=== PATIENT | female | born 1990 | race Caucasian/White ===

== ENCOUNTER 2017-11-26 17:20 | Inpatient (IN) ==
[2017-11-26] MEDS ORDERED: Clindamycin 600 mg/NS Premix 600 MG/50 ML PIGGYBACK IV.SIG ONE (19:39)
[2017-11-26] MEDS ORDERED: Sod Chloride 0.9% Inj 1,000 ML IV.SIG ONE (19:39)
[2017-11-26] MEDS ORDERED: Acetaminophen 325 MG Tablet PO ONE (19:39)
[2017-11-26] MEDS ORDERED: Vancomycin Inj 1 GM/200 ML PIGGYBACK IV.SIG ONE (19:39)
[2017-11-26] MEDS ORDERED: Ketorolac Inj 30 MG/ML (IVP) Vial IV.PUSH ONE (19:39)
--- NOTE | 2017-11-26 19:44 | ED ---
HPI General Chief complaint: Skin/Abscess/Foreign Body Stated complaint: Skin Time Seen by Provider: 11/26/17 19:26 Source: patient Mode of arrival: ambulatory Limitations: no limitations History of Present Illness HPI narrative: The patient is a 27-year-old female who presents to the emergency department for an infected wound to the right hand. The patient has a history of IV drug abuse, last use IV drugs yesterday. The patient was using mildly 2 days ago, via the right hand, which she developed swelling and pain. She now notes fever that is subjective, chills, and increasing right hand pain and swelling. 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 The patient denies any chest pain, shortness breath, nausea, vomiting, or abdominal pain. The patient does not have a local primary physician. Symptoms are moderate. Related Data Home Medications Medication Instructions Recorded Confirmed No Known Home Medications 11/26/17 11/26/17 Allergies Allergy/AdvReac Type Severity Reaction Status Date / Time No Known Allergies Allergy Unverified 11/26/17 19:39 Review of Systems Except as stated in HPI: all other systems reviewed are negative [facility] Medical History Medical History Abscess of leg (Acute) Surgical History Surgical History Previous section (Acute) Social History Social History Substance History: Active Abuse Second Hand Smoke Exposure: No Smoking Status: Current every day smoker Tobacco Type: Cigarettes How Often Do You Have a Drink Containing Alcohol: Never Recent Travel in [facility] within the Last 8 Weeks: No Recent Out of Country Travel within the Last 8 Weeks: No Exam Narrative Exam Narrative: GENERAL: Awake, alert, 27-year-old female who appears her stated age and is in no acute respiratory distress. SKIN: Focused skin assessment warm/dry. Impetigo type lesions, circular, crusted, on the upper extremities and lower extremities bilaterally. HEAD: Atraumatic. Normocephalic. EYES: Pupils equal and round. No scleral icterus. No injection or drainage. ENT: No nasal bleeding or discharge. Mucous membranes pink and moist. NECK: Trachea midline. No JVD. CARDIOVASCULAR: Regular, tachycardic with a heart rate 110. RESPIRATORY: No accessory muscle use. Clear to auscultation. Breath sounds equal bilaterally. GASTROINTESTINAL: Abdomen soft, non-tender, nondistended. Hepatic and splenic margins not palpable. MUSCULOSKELETAL: The right hand is erythematous, edematous, warm to touch. Positive right radial pulse. Multiple lesions noted on the upper and lower extremities from IV drug use. NEUROLOGICAL: Awake and alert. No obvious cranial nerve deficits. Motor grossly within normal limits. Normal speech. PSYCHIATRIC: Appropriate mood and affect; insight and judgment normal. Procedures Ultrasound POC Ultrasound Procedure: An ultrasound-guided IV was placed in the left upper extremity. Nursing staff was unable to obtain IV access, patient does have a history of IV drug abuse. I placed a 20-gauge ultrasound-guided IV, 1.88 inches , and the left upper extremity. There is good blood return. The IV fluid easily. There is no complications. The patient tolerated the procedure without difficulty. Course Consultations Consultation #1: The on-call medical service was paged for admission at 9:38 PM. I discussed the patient with the residents who agree with admission to Dr. Smith. Time: 21:38 Initial Documented Vital Signs Temperature 99.9 F H 11/26/17 17:25 Pulse Rate 113 H 11/26/17 17:25 Respiratory Rate 18 11/26/17 17:25 Blood Pressure 132/63 11/26/17 17:25 Pulse Oximetry 99 11/26/17 17:25 Last Documented Vital Signs Temperature 99.9 F H 11/26/17 21:00 Pulse Rate 99 H 11/26/17 21:00 Respiratory Rate 14 11/26/17 21:00 Blood Pressure 143/77 H 11/26/17 21:00 Pulse Oximetry 98 11/26/17 21:00 Medical Decision Making MDM Narrative Medical decision making narrative: IV was established, labs are drawn and sent, and the patient was placed on cardiac telemetry monitoring and continuous pulse oximetry monitoring. EKG was ordered and interpreted. Blood cultures and lactic acid were sent to lab. The patient was administered Tylenol, Toradol, IV fluids, vancomycin, and clindamycin. The patient's white count is unremarkable. Lactic acid is normal. Potassium is low at 3.1, this will be replaced orally. Chest x-ray is negative. X-ray of the right hand reveal soft tissue swelling but no visible foreign body. Patient is IV drug abuse with apparent bacteremia/septicemia with tachycardia and temperature 99.9. The patient may benefit from IV antibiotics until blood cultures are obtained. Therefore, the on-call medical service was paged for admission. Differential Diagnosis Differential Diagnosis: Differential diagnosis includes sepsis, bacteremia, septicemia, IV drug abuse, abscess, cellulitis, infected wound. Lab Data Lab results reviewed: Yes I reviewed the patient's lab results. Result diagrams: 11/26/17 20:10 11/26/17 20:30 Lab Results 11/26/17 11/26/17 11/26/17 Range/Units 20:10 20:30 20:30 WBC 9.2 (4.0-11.0) th/mm3 RBC 4.79 (4.00-5.30) mil/mm3 Hgb 13.7 (11.6-15.3) gm/dL Hct 43.3 (35.0-46.0) % MCV 90.5 (80.0-100.0) fL MCH 28.6 (27.0-34.0) pg MCHC 31.6 L (32.0-36.0) % RDW 17.8 H (11.6-17.2) % Plt Count 318 (150-450) th/mm3 MPV 7.2 (7.0-11.0) fL Neut % (Auto) 76.8 H (16.0-70.0) % Lymph % (Auto) 15.3 (9.0-44.0) % Tompkins % (Auto) 7.1 (0.0-8.0) % Eos % (Auto) 0.4 (0.0-4.0) % Baso % (Auto) 0.4 (0.0-2.0) % Neut # (Auto) 7.1 (1.8-7.7) th/mm3 Lymph # (Auto) 1.4 (1.0-4.8) th/mm3 Tompkins # (Auto) 0.7 (0.0-0.9) th/mm3 Eos # (Auto) 0.0 (0.0-0.4) th/mm3 Baso # (Auto) 0.0 (0.0-0.2) th/mm3 WBC Differential . Differential Comment Auto diff final Sodium 140 (136-145) meq/L Potassium 3.1 L (3.5-5.1) meq/L Chloride 103 (98-107) meq/L Carbon Dioxide 29.0 (21.0-32.0) meq/L Anion Gap 8 (5-15) meq/L BUN 5 L (7-18) mg/dL Creatinine 0.67 (0.50-1.00) mg/dL Estimated GFR Greater than 89 (>89) mL/min Random Glucose 63 L (74-106) mg/dL Lactic Acid 1.1 (0.4-2.0) mmol/L Calcium 8.0 L (8.5-10.1) mg/dL Total Bilirubin 0.2 (0.2-1.0) mg/dL AST 7 L (15-37) U/L ALT 10 (10-53) U/L Alkaline Phosphatase 55 (45-117) U/L Total Protein 7.3 (6.4-8.2) g/dL Albumin 2.7 L (3.4-5.0) g/dL Imaging Data Radiologist's impression: Chest X-Ray 11/26/17 19:39 CONCLUSION: Hand X-Ray 11/26/17 19:44 CONCLUSION: Chest x-ray reveals no acute cardiopulmonary disease. Hand x-ray reveals soft tissue swelling. ECG Data EKG Prior to Arrival: No Attestation: I personally reviewed and interpreted this ECG as follows: Interpretation: EKG reveals normal sinus rhythm with a rate in the 9 or ectopy noted. Discharge Plan Discharge Disposition Patient Disposition: 30 Still Patient Discharge Condition Condition: Stable Discharge Details Diagnosis: Cellulitis, Infected wound, Intravenous drug abuse Physicians Team ED Provider: Sushil Zavaleta Primary Care Provider: Primary Care Maty Bo Rxs /Orders / Referrals /Forms Prescriptions: No Action No Known Home Medications RF: 0 Status ED Status: Pending Admission
[2017-11-26] MEDS ORDERED: Vancomycin Inj 1,000 MG in Sodium Chlor 0.9% Inj 250 ML IV.SIG ONE (20:30)
--- NOTE | 2017-11-26 20:38 | XR ---
EXAM DATE: 11/26/2017 8:06 PM EDT AGE/SEX: 27 years / Female INDICATIONS: Fever, cough, congestion. CLINICAL DATA: This is the patient's initial encounter. Patient reports that signs and symptoms have been present for 2 days and indicates a pain score of 0/10. MEDICAL/SURGICAL HISTORY: . Smoker. None. COMPARISON: No prior exams available for comparison. FINDINGS: A single AP view of the chest demonstrates the lungs to be symmetrically aerated without evidence of mass, infiltrate or effusion. The cardiomediastinal contours are unremarkable. Osseous structures a re intact. CONCLUSION: No acute cardiopulmonary process. Electronically signed by: Arun Spicer MD 11/26/2017 8:37 PM EDT
[2017-11-26 20:45] LABS: Baso % (Auto) 0.4 % (0.0-2.0); Eos % (Auto) 0.4 % (0.0-4.0); Hematocrit 43.3 % (35.0-46.0); Hemoglobin 13.7 gm/dL (11.6-15.3); Lymph # (Auto) 1.4 th/mm3 (1.0-4.8); Lymph % (Auto) 15.3 % (9.0-44.0); Mean Corpuscular HGB Conc 31.6 % (32.0-36.0); Mean Corpuscular Hemoglobin 28.6 pg (27.0-34.0); Mean Corpuscular Volume 90.5 fL (80.0-100.0); Mean Platelet Volume 7.2 fL (7.0-11.0); Mono # (Auto) 0.7 th/mm3 (0.0-0.9); Mono % (Auto) 7.1 % (0.0-8.0); Neut # (Auto) 7.1 th/mm3 (1.8-7.7); Neut % (Auto) 76.8 % (16.0-70.0); Platelet Count 318 th/mm3 (150-450); Red Blood Count 4.79 mil/mm3 (4.00-5.30); Red Cell Distribution Width 17.8 % (11.6-17.2); White Blood Count 9.2 th/mm3 (4.0-11.0)
--- NOTE | 2017-11-26 21:11 | XR ---
EXAM DATE: 11/26/2017 8:08 PM EDT AGE/SEX: 27 years / Female INDICATIONS: Right hand pain and swelling after injecting Amy into hand two days ago. Evaluate for foreign body. CLINICAL DATA: This is the patient's initial encounter. Patient reports that signs and symptoms have been present for 2 days and indicates a pain score of 10/10. MEDICAL/SURGICAL HISTORY: . Smoker. None. COMPARISON: No prior exams available for comparison. FINDINGS: No fracture is seen. No areas of bony destruction are seen. The bones and joints are normally aligned . There is soft tissue swelling at the dorsal aspect of the hand over the metacarpals. No foreign bod y is seen. CONCLUSION: Soft tissue swelling. Electronically signed by: Arun Spicer MD 11/26/2017 9:10 PM EDT
[2017-11-26 21:33] LABS: Albumin 2.7 g/dL (3.4-5.0); Anion Gap 8 meq/L (5-15); Aspartate Aminotransferase 7 U/L (15-37); Blood Urea Nitrogen 5 mg/dL (7-18); Chloride 103 meq/L (98-107); Glomerular Filtration Rate Greater Than 89 mL/min (>89); Glucose,Random 63 mg/dL (74-106); Potassium 3.1 meq/L (3.5-5.1); Sodium 140 meq/L (136-145)
[2017-11-26 21:37] LABS: Alanine Aminotransferase 10 U/L (10-53); Alkaline Phosphatase 55 U/L (45-117); Total Protein 7.3 g/dL (6.4-8.2)
--- NOTE | 2017-11-26 22:14 | P.HPFP ---
History of Present Illness Primary Care Physician: No Primary Care Physician History of Present Illness: 27 year old female with history of IVDU presents with R hand swelling and pain shooting up her arm. The pain started 2 days ago and it was located on her right hand anteriorly. She describes the pain as a sharp pain. Holding her hand up in the air makes it feel better and the pain is worse when she tries to lay it down. The swelling seems to have increased up her arm in the past few days. She stated she was trying to shoot ji and cocaine up two days ago and she missed the vein so she believes she injected her skin and that's why it is infected. She has not taken any medication for the pain. She has also had associated fever, chills, nausea and vomiting over the past two days. This has never happened to her in the past PMH: Denies A: NKDA Meds: See Med Red FH: Denies SH: Currently homeless. Smokes cigarettes 1 ppd for 9 years. Denies any alcohol use. Does Heroin, Cocaine, and Ji (does not share needles, gets them from [facility]). Sexually active with male. Uses protection (condom) with every encounter. - Diagnosis (1) Cellulitis (2) Withdrawal from opioids (3) Intravenous drug abuse (4) Murmur, cardiac (5) Nutrition, metabolism, and development symptoms Inpatient Certification: I certify that the inpatient services were ordered in accordance with Medicare regulations governing the order. This includes certification that hospital inpatient services are reasonable and necessary and in the case of services not specified as inpatient-only under 42 CFR 419.22(n), that they are appropriately provided as inpatient services in accordance to with the 2-midnight benchmark under 43 CFR 412.3(e) Review of Systems Constitutional: Reports chills, Reports fever(s) Comments: started yesterday Cardiovascular: Denies chest pain Respiratory: Denies shortness of breath Gastrointestinal: Reports nausea, Reports vomiting, Denies abdominal pain Comments: started two days ago Skin/Breast: Denies rash, Denies skin ulcer, Denies sores, Denies wounds PMFSH - History History Provided By: Patient - Medical History Medical History: Medical History (Last Updated 11/26/17 @ 19:44 by Juanito Walker) Abscess of leg - Surgical History Surgical History: Surgical History (Last Updated 11/26/17 @ 19:44 by Juanito Walker) Previous section - Tobacco History Second Hand Smoke Exposure: No Tobacco Use In Past 30 Days: Yes (1/2PPD) Smoking Status: Current every day smoker Tobacco Type: Cigarettes - Alcohol History How Often Do You Have a Drink Containing Alcohol: Never - Substance Use History Substance History: Active Abuse - Substance Use Type Heroin Type: JI Status: Active Route Used: By Mouth, Intravenously Reason for Use: Feels Good - Travel History Recent Travel in the [place] Within the Last 8 Weeks: No Recent Travel Out of the Country Within the Last 8 Weeks: No - Immunization History Tetanus Immunization: Unsure Hx Influenza Vaccine This Season: No Medications and Allergies Allergies Allergy/AdvReac Type Severity Reaction Status Date / Time No Known Allergies Allergy Unverified 11/26/17 19:39 Home Medications Medication Instructions Recorded Confirmed Type No Known Home Medications 11/26/17 11/26/17 History Exam Vital signs: Vital Signs 11/26/17 17:25 11/26/17 19:43 11/26/17 21:00 Temperature 99.9 F H 99.9 F H Pulse Rate 113 H 99 H Respiratory Rate 18 14 Blood Pressure 132/63 143/77 H Pulse Oximetry 99 99 98 Intake & Output 11/26/17 11/26/17 11/27/17 06:59 18:59 06:59 Weight 63.503 kg - Routine HEENT Exam Head: Present: normocephalic, atraumatic - Routine Respiratory Exam Present: CTA bilaterally - Routine Cardiovascular Exam Present: RRR, murmur Comments: grade 3 systolic murmur located over the L sternal border - Routine Abdominal Exam Present: soft, normoactive bowel sounds - Routine Extremities Exam Comments: Multiple skin abrasions seen on forearms and feet bilaterally. 4x6cm area of erythematous swelling on the right hand. It is warm to the touch and tender to palpation. Limited blue leather setter strength and movement of the right fingers. 2+ Radial pulses are present bilaterally. Sensation to light touch is intact in the hands bilaterally. Results - Labs Result diagrams: 11/26/17 20:10 11/26/17 20:30 Abnormal lab results 11/26/17 11/26/17 Range/Units 20:10 20:30 MCHC 31.6 L (32.0-36.0) % RDW 17.8 H (11.6-17.2) % Neut % (Auto) 76.8 H (16.0-70.0) % Potassium 3.1 L (3.5-5.1) meq/L BUN 5 L (7-18) mg/dL Random Glucose 63 L (74-106) mg/dL Calcium 8.0 L (8.5-10.1) mg/dL AST 7 L (15-37) U/L Albumin 2.7 L (3.4-5.0) g/dL Short CBC 11/26/17 Range/Units 20:10 WBC 9.2 (4.0-11.0) th/mm3 Hgb 13.7 (11.6-15.3) gm/dL Hct 43.3 (35.0-46.0) % Plt Count 318 (150-450) th/mm3 BMP 11/26/17 20:30 Sodium 140 Potassium 3.1 L Chloride 103 Carbon Dioxide 29.0 BUN 5 L Creatinine 0.67 Calcium 8.0 L Liver Function 11/26/17 Range/Units 20:30 Total Bilirubin 0.2 (0.2-1.0) mg/dL AST 7 L (15-37) U/L ALT 10 (10-53) U/L Alkaline Phosphatase 55 (45-117) U/L Albumin 2.7 L (3.4-5.0) g/dL - Imaging Impressions Chest X-Ray 11/26/17 19:39 CONCLUSION: Hand X-Ray 11/26/17 19:44 CONCLUSION: Caprini VTE Risk Assessment Caprini VTE Risk Assessment: No/Low Risk (score <= 1) Caprini Risk Assessment Model: Point Value = 1 Point Value = 2 Point Value = 3 Point Value = 5 Age 41-60 Minor surgery BMI > 25 kg/m2 Swollen legs Varicose veins or History of unexplained or recurrent spontaneous Oral contraceptives or hormone replacement Sepsis (< 1 month) Serious lung disease, including pneumonia (< 1 month) Abnormal pulmonary function Acute myocardial infarction Congestive heart failure (< 1 month) History of inflammatory bowel disease Medical patient at bed rest Age 61-74 Arthroscopic surgery Major open surgery (> 45 min) Laparoscopic surgery (> 45 min) Malignancy Confined to bed (> 72 hours) Immobilizing plaster cast Central venous access Age >= 75 History of VTE Family history of VTE Factor V Leiden Prothrombin 44530A Lupus anticoagulant Anticardiolipin antibodies Elevated serum homocysteine Heparin-induced thrombocytopenia Other congenital or acquired thrombophilia Stroke (< 1 month) Elective arthroplasty Hip, pelvis, or leg fracture Acute spinal cord injury (< 1 month) Prophylaxis Regimen: Total Risk Factor Score Risk Level Prophylaxis Regimen 0-1 Low Early ambulation 2 Moderate Order ONE of the following: *Sequential Compression Device (SCD) *Heparin 5000 units SQ BID 3-4 Higher Order ONE of the following medications: *Heparin 5000 units SQ TID *Enoxaparin/Lovenox 40 mg SQ daily (WT < 150 kg, CrCl > 30 mL/min) *Enoxaparin/Lovenox 30 mg SQ daily (WT < 150 kg, CrCl > 10-29 mL/min) *Enoxaparin/Lovenox 30 mg SQ BID (WT < 150 kg, CrCl > 30 mL/min) AND/OR *Sequential Compression Device (SCD) 5 or more Highest Order ONE of the following medications: *Heparin 5000 units SQ TID (Preferred with Epidurals) *Enoxaparin/Lovenox 40 mg SQ daily (WT < 150 kg, CrCl > 30 mL/min) *Enoxaparin/Lovenox 30 mg SQ daily (WT < 150 kg, CrCl > 10-29 mL/min) *Enoxaparin/Lovenox 30 mg SQ BID (WT < 150 kg, CrCl > 30 mL/min) AND *Sequential Compression Device (SCD) Assessment and Plan - Assessment (1) Cellulitis Code(s): L03.90 - Cellulitis, unspecified Status: Acute Plan: 4x6 cm area of erythematous swelling of the R hand. Warm to the touch and tender to palpation. WC: 9.2 with neutrophil predominant 76.8 IV Vancomycin ordered. Blood Cultures sent. Tylenol for fevers PRN Ketorolac 30 mg IV q6 for pain. Monitor Vitals q4 (2) Withdrawal from opioids Code(s): F11.23 - Opioid dependence with withdrawal Status: Acute Plan: Patient admits to using herion, cocaine and ji. Currently withdrawing. Urine Drug Screen Ordered Benadryl PRN for withdrawal symptoms (3) Intravenous drug abuse Code(s): F19.10 - Other psychoactive substance abuse, uncomplicated Status: Acute Plan: Patient admits to using heroin, ji and cocaine. States that she is currently withdrawing. Psych Drug Screen Ordered (4) Murmur, cardiac Code(s): R01.1 - Cardiac murmur, unspecified Status: Acute Plan: Systolic murmur appreciated over the L sternal border. Concerns for endocarditis considering IV drug use Echo ordered. (5) Nutrition, metabolism, and development symptoms Code(s): R63.8 - Other symptoms and signs concerning food and fluid intake Status: Acute Plan: Fluids: NS maintenance @ 100 mls/hr Electrolyes: Monitor and Replete as needed Nutrition: Normal Diet (1) Cellulitis Qualifiers: Site of cellulitis: extremity Site of cellulitis of extremity: upper extremity Laterality: right Qualified Code(s): L03.113 - Cellulitis of right upper limb
[2017-11-26] MEDS ORDERED: Acetaminophen 325 MG Tablet PO PRN (22:33)
[2017-11-26] MEDS ORDERED: Vancomycin Consult Pharmacy 1 EACH OTHER SCH (23:00)
[2017-11-26 23:41] LABS: Amphetamine Urine With Conf Neg (Neg); Benzodiazepine Urine With Conf Neg (Neg)
[2017-11-27] MEDS: Sod Chloride 0.9% Inj 1,000 ML IV.CONT SCH ×4 (03:06→23:12)
[2017-11-27] MEDS: Ketorolac Inj 30 MG/ML (IVP) Vial IV.PUSH SCH ×5 (03:06→23:12)
[2017-11-27] MEDS ORDERED: Vancomycin Inj 1,000 MG in Sodium Chlor 0.9% Inj 250 ML IV.SIG ONE (05:00)
[2017-11-27 06:16] LABS: Bacteria,Urine Occasional /hpf; Bilirubin,Urine Negative (Negative); Clarity,Urine Cloudy (Clear); Color,Urine Yellow (Yellw/Straw); Glucose,Urine (UA) Negative (Negative); Leukocyte Esterase,Urine Large (Negative); Mucus,Urine Few /lpf (Occasional); Nitrite,Urine Negative (Negative); Specific Gravity,Urine 1.014 (1.002-1.035); Squamous Epithelial Cell,Urine 3 /hpf (0-5)
[2017-11-27 08:51] LABS: Baso % (Auto) 0.2 % (0.0-2.0); Eos # (Auto) 0.1 th/mm3 (0.0-0.4); Eos % (Auto) 1.1 % (0.0-4.0); Hematocrit 30.9 % (35.0-46.0); Hemoglobin 10.1 gm/dL (11.6-15.3); Lymph # (Auto) 1.1 th/mm3 (1.0-4.8); Lymph % (Auto) 19.1 % (9.0-44.0); Mean Corpuscular HGB Conc 32.5 % (32.0-36.0); Mean Corpuscular Volume 89.2 fL (80.0-100.0); Mean Platelet Volume 7.4 fL (7.0-11.0); Mono # (Auto) 0.5 th/mm3 (0.0-0.9); Mono % (Auto) 9.5 % (0.0-8.0); Neut % (Auto) 70.1 % (16.0-70.0); Platelet Count 274 th/mm3 (150-450); Red Blood Count 3.47 mil/mm3 (4.00-5.30); Red Cell Distribution Width 17.5 % (11.6-17.2); White Blood Count 5.7 th/mm3 (4.0-11.0)
[2017-11-27] MEDS ORDERED: Piperacil/Tazo 3.375 GM Premix 50 ML IV.SIG SCH (09:00)
[2017-11-27 09:02] LABS: Alanine Aminotransferase 9 U/L (10-53); Albumin 2.4 g/dL (3.4-5.0); Anion Gap 7 meq/L (5-15); Aspartate Aminotransferase 6 U/L (15-37); Blood Urea Nitrogen 8 mg/dL (7-18); Calcium 7.6 mg/dL (8.5-10.1); Carbon Dioxide 26.3 meq/L (21.0-32.0); Chloride 110 meq/L (98-107); Glomerular Filtration Rate Greater Than 89 mL/min (>89); Glucose,Random 70 mg/dL (74-106); Potassium 3.3 meq/L (3.5-5.1)
[2017-11-27 09:03] LABS: Sodium 143 meq/L (136-145)
[2017-11-27 09:04] LABS: Alkaline Phosphatase 44 U/L (45-117); Total Protein 6.3 g/dL (6.4-8.2)
[2017-11-27] MEDS ORDERED: Haloperidol Inj 5 MG/ML Ampul IV.PUSH PRN (11:22)
--- NOTE | 2017-11-27 11:34 | P.PNFP ---
Subjective Interval history: Patient seen and examined bedside this morning. She states her redness and swelling of her right hand has improved overnight. She is now able to move her fingers and she was not able to move her fingers before. She does not feel like the redness is extending. She feels the pain from her fingers to her bicep. She denies any nausea/vomiting. She does have a good appetite. Denies any chest pain/shortness of breath/dizziness. <Digna Solorzano - 11/27/17 11:33> Results - Labs Result diagrams: 11/27/17 12:20 11/27/17 08:00 <Seth Smith - 11/27/17 16:30> Abnormal lab results 11/26/17 11/26/17 11/27/17 Range/Units 20:10 20:30 05:30 RBC (4.00-5.30) mil/mm3 Hgb (11.6-15.3) gm/dL Hct (35.0-46.0) % MCHC 31.6 L (32.0-36.0) % RDW 17.8 H (11.6-17.2) % Neut % (Auto) 76.8 H (16.0-70.0) % [place] % (Auto) (0.0-8.0) % Potassium 3.1 L (3.5-5.1) meq/L Chloride (98-107) meq/L BUN 5 L (7-18) mg/dL Random Glucose 63 L (74-106) mg/dL Calcium 8.0 L (8.5-10.1) mg/dL AST 7 L (15-37) U/L ALT (10-53) U/L Alkaline Phosphatase (45-117) U/L Total Protein (6.4-8.2) g/dL Albumin 2.7 L (3.4-5.0) g/dL Urine Clarity Cloudy H (Clear) Urine Protein 30 H (Neg-Trace) mg/dL Urine Urobilinogen 2.0 H (Less than 2) mg/dL Ur Leukocyte Esterase Large H (Negative) Urine RBC 4 H (0-3) /hpf Urine WBC Clumps Few H (None) Urine Bacteria Occasional H (None) /hpf Urine Mucus Few H (Occasional) /lpf 11/27/17 11/27/1711/27/18 Range/Units 08:00 08:05 12:20 RBC 3.47 L 3.60 L (4.00-5.30) mil/mm3 Hgb 10.1 L D 10.3 L (11.6-15.3) gm/dL Hct 30.9 L 31.6 L (35.0-46.0) % MCHC (32.0-36.0) % RDW 17.5 H 17.5 H (11.6-17.2) % Neut % (Auto) 70.1 H (16.0-70.0) % [place] % (Auto) 9.5 H (0.0-8.0) % Potassium 3.3 L (3.5-5.1) meq/L Chloride 110 H (98-107) meq/L BUN (7-18) mg/dL Random Glucose 70 L (74-106) mg/dL Calcium 7.6 L (8.5-10.1) mg/dL AST 6 L (15-37) U/L ALT 9 L (10-53) U/L Alkaline Phosphatase 44 L (45-117) U/L Total Protein 6.3 L D (6.4-8.2) g/dL Albumin 2.4 L (3.4-5.0) g/dL Urine Clarity (Clear) Urine Protein (Neg-Trace) mg/dL Urine Urobilinogen (Less than 2) mg/dL Ur Leukocyte Esterase (Negative) Urine RBC (0-3) /hpf Urine WBC Clumps (None) Urine Bacteria (None) /hpf Urine Mucus (Occasional) /lpf Short CBC 11/26/17 11/27/17 11/27/17 Range/Units 20:10 08:05 12:20 WBC 9.2 5.7 5.9 (4.0-11.0) th/mm3 Hgb 13.7 10.1 L D 10.3 L (11.6-15.3) gm/dL Hct 43.3 30.9 L 31.6 L (35.0-46.0) % Plt Count 318 274 326 (150-450) th/mm3 BMP 11/26/17 11/27/17 20:30 08:00 Sodium 140 143 Potassium 3.1 L 3.3 L Chloride 103 110 H Carbon Dioxide 29.0 26.3 BUN 5 L 8 Creatinine 0.67 0.57 Calcium 8.0 L 7.6 L Liver Function 11/26/17 11/27/17 Range/Units 20:30 08:00 Total Bilirubin 0.2 0.2 (0.2-1.0) mg/dL AST 7 L 6 L (15-37) U/L ALT 10 9 L (10-53) U/L Alkaline Phosphatase 55 44 L (45-117) U/L Albumin 2.7 L 2.4 L (3.4-5.0) g/dL Urine 11/27/17 Range/Units 05:30 Urine Color Yellow (Yellw/Straw) Urine Clarity Cloudy H (Clear) Urine pH 6.0 (5.0-8.5) Ur Specific [place] 1.014 (1.002-1.035) Urine Protein 30 H (Neg-Trace) mg/dL Urine Glucose (UA) Negative (Negative) mg/dL <Seth Smith - 11/27/17 16:30> Abnormal lab results 11/26/17 11/26/17 11/27/17 Range/Units 20:10 20:30 05:30 RBC (4.00-5.30) mil/mm3 Hgb (11.6-15.3) gm/dL Hct (35.0-46.0) % MCHC 31.6 L (32.0-36.0) % RDW 17.8 H (11.6-17.2) % Neut % (Auto) 76.8 H (16.0-70.0) % [place] % (Auto) (0.0-8.0) % Potassium 3.1 L (3.5-5.1) meq/L Chloride (98-107) meq/L BUN 5 L (7-18) mg/dL Random Glucose 63 L (74-106) mg/dL Calcium 8.0 L (8.5-10.1) mg/dL AST 7 L (15-37) U/L ALT (10-53) U/L Alkaline Phosphatase (45-117) U/L Total Protein (6.4-8.2) g/dL Albumin 2.7 L (3.4-5.0) g/dL Urine Clarity Cloudy H (Clear) Urine Protein 30 H (Neg-Trace) mg/dL Urine Urobilinogen 2.0 H (Less than 2) mg/dL Ur Leukocyte Esterase Large H (Negative) Urine RBC 4 H (0-3) /hpf Urine WBC Clumps Few H (None) Urine Bacteria Occasional H (None) /hpf Urine Mucus Few H (Occasional) /lpf 11/27/17 11/27/17 Range/Units 08:00 08:05 RBC 3.47 L (4.00-5.30) mil/mm3 Hgb 10.1 L D (11.6-15.3) gm/dL Hct 30.9 L (35.0-46.0) % MCHC (32.0-36.0) % RDW 17.5 H (11.6-17.2) % Neut % (Auto) 70.1 H (16.0-70.0) % [place] % (Auto) 9.5 H (0.0-8.0) % Potassium 3.3 L (3.5-5.1) meq/L Chloride 110 H (98-107) meq/L BUN (7-18) mg/dL Random Glucose 70 L (74-106) mg/dL Calcium 7.6 L (8.5-10.1) mg/dL AST 6 L (15-37) U/L ALT 9 L (10-53) U/L Alkaline Phosphatase 44 L (45-117) U/L Total Protein 6.3 L D (6.4-8.2) g/dL Albumin 2.4 L (3.4-5.0) g/dL Urine Clarity (Clear) Urine Protein (Neg-Trace) mg/dL Urine Urobilinogen (Less than 2) mg/dL Ur Leukocyte Esterase (Negative) Urine RBC (0-3) /hpf Urine WBC Clumps (None) Urine Bacteria (None) /hpf Urine Mucus (Occasional) /lpf Short CBC 11/26/17 11/27/17 Range/Units 20:10 08:05 WBC 9.2 5.7 (4.0-11.0) th/mm3 Hgb 13.7 10.1 L D (11.6-15.3) gm/dL Hct 43.3 30.9 L (35.0-46.0) % Plt Count 318 274 (150-450) th/mm3 BMP 11/26/17 11/27/17 20:30 08:00 Sodium 140 143 Potassium 3.1 L 3.3 L Chloride 103 110 H Carbon Dioxide 29.0 26.3 BUN 5 L 8 Creatinine 0.67 0.57 Calcium 8.0 L 7.6 L Liver Function 11/26/17 11/27/17 Range/Units 20:30 08:00 Total Bilirubin 0.2 0.2 (0.2-1.0) mg/dL AST 7 L 6 L (15-37) U/L ALT 10 9 L (10-53) U/L Alkaline Phosphatase 55 44 L (45-117) U/L Albumin 2.7 L 2.4 L (3.4-5.0) g/dL Urine 11/27/17 Range/Units 05:30 Urine Color Yellow (Yellw/Straw) Urine Clarity Cloudy H (Clear) Urine pH 6.0 (5.0-8.5) Ur Specific [place] 1.014 (1.002-1.035) Urine Protein 30 H (Neg-Trace) mg/dL Urine Glucose (UA) Negative (Negative) mg/dL <Digna Solorzano - 11/27/17 11:33> - Imaging Impressions Chest X-Ray 11/26/17 19:39 CONCLUSION: No acute cardiopulmonary process. Hand X-Ray 11/26/17 19:44 CONCLUSION: Soft tissue swelling. <Seth Smith - 11/27/17 16:30> Impressions Chest X-Ray 11/26/17 19:39 CONCLUSION: No acute cardiopulmonary process. Hand X-Ray 11/26/17 19:44 CONCLUSION: Soft tissue swelling. <Digna Solorzano - 11/27/17 11:33> Physical Exam Vital signs: Vital Signs 11/26/17 17:25 11/26/17 19:43 11/26/17 21:00 Temperature 99.9 F H 99.9 F H Pulse Rate 113 H 99 H Respiratory Rate 18 14 Blood Pressure 132/63 143/77 H Pulse Oximetry 99 99 98 11/27/17 01:04 11/27/17 02:00 11/27/17 04:00 Temperature 98.0 F 98.5 F Pulse Rate 73 77 75 Respiratory Rate 18 18 Blood Pressure 109/62 127/76 130/77 Pulse Oximetry 100 99 100 11/27/17 11:27 11/27/17 13:58 Temperature 99.9 F H 98.5 F Pulse Rate 90 87 Respiratory Rate 18 16 Blood Pressure 121/58 L 118/65 Pulse Oximetry 98 98 Intake & Output 11/26/17 11/27/17 11/27/17 18:59 06:59 18:59 Intake Total 360 / 360 1000 / 1000 Output Total 120 / 120 Balance 240 / 240 1000 / 1000 Weight 63.503 kg 63.503 kg Intake: IV 1000 / 1000 NS Inj 1,000 ML @ 100 mls/hr IV 1000 / 1000 .CONT .Q10H [facility] Rx#:[id number] Oral 360 / 360 Output: Urine 120 / 120 Other: # Voids 3 Date of Last Bowel Movement 11/26/17 Weight On Admission 63.503 kg <SarahSeth - 11/27/17 16:30> Vital Signs 11/26/17 17:25 11/26/17 19:43 11/26/17 21:00 Temperature 99.9 F H 99.9 F H Pulse Rate 113 H 99 H Respiratory Rate 18 14 Blood Pressure 132/63 143/77 H Pulse Oximetry 99 99 98 11/27/17 01:04 11/27/17 02:00 11/27/17 04:00 Temperature 98.0 F 98.5 F Pulse Rate 73 77 75 Respiratory Rate 18 18 Blood Pressure 109/62 127/76 130/77 Pulse Oximetry 100 99 100 Intake & Output 11/26/17 11/27/17 11/27/17 18:59 06:59 18:59 Intake Total 360 / 360 Output Total 120 / 120 Balance 240 / 240 Weight 63.503 kg 63.503 kg Intake: Oral 360 / 360 Output: Urine 120 / 120 Other: # Voids 3 Date of Last Bowel Movement 11/26/17 Weight On Admission 63.503 kg <Digna Solorzano - 11/27/17 11:33> - Constitutional no acute distress <Digna Solorzano 11/27/17 11:33> - Routine Respiratory Exam Present: CTA bilaterally <Digna Solorzano 11/27/17 11:33> - Routine Cardiovascular Exam Present: RRR, S1, S2 <Digna Soolrzano 11/27/17 11:33> - Routine Abdominal Exam Present: soft, normoactive bowel sounds. Absent: distended, rigid <Digna Solorzano - 11/27/17 11:33> - Routine Extremities Exam Absent: cyanosis, clubbing, edema <Digna Solorzano - 11/27/17 11:33> Assessment and Plan - Assessment (1) Cellulitis Code(s): L03.90 - Cellulitis, unspecified Status: Acute (2) Acute anemia Code(s): D64.9 - Anemia, unspecified Status: Acute (3) Withdrawal from opioids Code(s): F11.23 - Opioid dependence with withdrawal Status: Acute (4) Intravenous drug abuse Code(s): F19.10 - Other psychoactive substance abuse, uncomplicated Status: Acute (5) Murmur, cardiac Code(s): R01.1 - Cardiac murmur, unspecified Status: Acute (6) Nutrition, metabolism, and development symptoms Code(s): R63.8 - Other symptoms and signs concerning food and fluid intake Status: Acute <SarahSeth - 11/27/17 16:30> (1) Cellulitis Code(s): L03.90 - Cellulitis, unspecified Status: Acute Plan: Much improvement overnight, continue IV vancomycin and add Zosyn for coverage of gram negatives -No signs of sepsis -Blood cultures negative 1 day 4x6 cm area of erythematous swelling of the R hand. Warm to the touch and tender to palpation. WC: 9.2 with neutrophil predominant 76.8 IV Vancomycin ordered. Blood Cultures sent. Tylenol for fevers PRN Ketorolac 30 mg IV q6 for pain. Monitor Vitals q4 (2) Acute anemia Code(s): D64.9 - Anemia, unspecified Status: Acute Plan: Hemoglobin of 13.7 on admission, dropped to 10.1 today No symptoms or evidence of GI bleed Ordered iron, vitamin C, will plan to discharge on these medications Follow-up CBC in 6 hours (3) Withdrawal from opioids Code(s): F11.23 - Opioid dependence with withdrawal Status: Acute Plan: Patient admits to using herion, cocaine and ji. Currently withdrawing, but stable. Urine Drug Screen Ordered [facility]N [facility] (4) Intravenous drug abuse Code(s): F19.10 - Other psychoactive substance abuse, uncomplicated Status: Acute Plan: Patient admits to using heroin, ji and cocaine. States that she is currently withdrawing. Psych Drug Screen Ordered Case management consulted, patient needs her identification card to go to methadone clinic for rehab,no placement following this admission (5) Murmur, cardiac Code(s): R01.1 - Cardiac murmur, unspecified Status: Acute Plan: Systolic murmur appreciated over the L sternal border on admission by resident. Concerns for endocarditis considering IV drug use Echo ordered, follow-up results. (6) Nutrition, metabolism, and development symptoms Code(s): R63.8 - Other symptoms and signs concerning food and fluid intake Status: Acute Plan: Fluids: NS maintenance @ 100 mls/hr, p.o. fluids encourage Electrolyes: Monitor and Replete as needed Nutrition: Normal Diet <Digna Solorzano - 11/27/17 11:16> - Assessment and Plan 27-year-old female, history of IV drug use, presents with right hand cellulitis and murmur on exam. <Digna Solorzano - 11/27/17 11:33> Discharge Planning: Discharge pending resolution of symptoms, workup of cardiac murmur, stabilization of acute anemia <Digna Solorzano - 11/27/17 11:33> - Attending Attestation The exam, history, and the medical decision-making described in the above note were completed with the assistance of the resident physician. I reviewed and agree with the findings presented. I attest that I had a [id number] encounter with the patient on the same day, and personally performed and documented my assessment and findings in the medical record. <Seth Smith - 11/27/17 16:30> <Digna Solorzano - Last Filed: 11/27/17 11:16> (1) Cellulitis Qualifiers: Site of cellulitis: extremity Site of cellulitis of extremity: upper extremity Laterality: right Qualified Code(s): L03.113 - Cellulitis of right upper limb <Seth Smith - Last Filed: 11/27/17 16:30> (1) Cellulitis Qualifiers: Site of cellulitis: extremity Site of cellulitis of extremity: upper extremity Laterality: right Qualified Code(s): L03.113 - Cellulitis of right upper limb <Digna Solorzano - Last Filed: 11/27/17 11:16> (1) Cellulitis Qualifiers: Site of cellulitis: extremity Site of cellulitis of extremity: upper extremity Laterality: right Qualified Code(s): L03.113 - Cellulitis of right upper limb <Seth Smith - Last Filed: 11/27/17 16:30> (1) Cellulitis Qualifiers: Site of cellulitis: extremity Site of cellulitis of extremity: upper extremity Laterality: right Qualified Code(s): L03.113 - Cellulitis of right upper limb
--- NOTE | 2017-11-27 12:05 | ECG ---
Date Performed: 11/26/2017 Time Performed: 20:45:08 PTAGE: 27 years EKG: Sinus rhythm NORMAL ECG NO PREVIOUS TRACING DOCTOR: Omar Tenorio Interpretating Date/Time 11/27/2017 12:03:15
[2017-11-27 12:51] LABS: Hematocrit 31.6 % (35.0-46.0); Hemoglobin 10.3 gm/dL (11.6-15.3); Mean Corpuscular HGB Conc 32.7 % (32.0-36.0); Mean Corpuscular Hemoglobin 28.7 pg (27.0-34.0); Mean Corpuscular Volume 87.8 fL (80.0-100.0); Mean Platelet Volume 7.6 fL (7.0-11.0); Platelet Count 326 th/mm3 (150-450); Red Cell Distribution Width 17.5 % (11.6-17.2); White Blood Count 5.9 th/mm3 (4.0-11.0)
[2017-11-27] MEDS: Vancomycin Inj 1,000 MG in Sodium Chlor 0.9% Inj 250 ML IV.SIG SCH (13:46)
[2017-11-27] MEDS: Ferrous Sulfate 325 MG Tablet PO SCH ×2 (13:54→23:10)
[2017-11-27] MEDS: Ascorbic Acid 500 MG Tablet PO SCH (13:54)
[2017-11-27] MEDS ORDERED: Vancomycin Inj 1,250 MG in Sodium Chlor 0.9% Inj 250 ML IV.SIG SCH (16:00)
[2017-11-27] MEDS: Piperacil/Tazo 4.5 GM Premix 4.5 GM/100 ML BAG IV.SIG SCH ×2 (17:18→23:19)
[2017-11-27] MEDS ORDERED: Pharmacy Ordered Lab Info OTHER ONE (21:45)
[2017-11-28] MEDS: Vancomycin Inj 1,000 MG in Sodium Chlor 0.9% Inj 250 ML IV.SIG SCH (00:17)
[2017-11-28] MEDS: Piperacil/Tazo 4.5 GM Premix 4.5 GM/100 ML BAG IV.SIG SCH ×4 (05:00→22:16)
[2017-11-28] MEDS: Sod Chloride 0.9% Inj 1,000 ML IV.CONT SCH ×2 (06:27→17:07)
[2017-11-28] MEDS: Ketorolac Inj 30 MG/ML (IVP) Vial IV.PUSH SCH ×4 (06:28→22:16)
[2017-11-28] MEDS: Vancomycin Inj 1,250 MG in Sodium Chlor 0.9% Inj 250 ML IV.SIG SCH ×3 (06:29→22:16)
[2017-11-28] MEDS: Ferrous Sulfate 325 MG Tablet PO SCH ×2 (08:32→22:36)
[2017-11-28] MEDS: Ascorbic Acid 500 MG Tablet PO SCH (08:32)
[2017-11-28] MEDS: LORazepam 1 MG Tablet PO PRN (08:50)
[2017-11-28 09:10] LABS: Baso % (Auto) 0.4 % (0.0-2.0); Eos # (Auto) 0.1 th/mm3 (0.0-0.4); Eos % (Auto) 1.1 % (0.0-4.0); Hematocrit 30.8 % (35.0-46.0); Lymph % (Auto) 17.7 % (9.0-44.0); Mean Corpuscular HGB Conc 32.4 % (32.0-36.0); Mean Corpuscular Volume 89.6 fL (80.0-100.0); Mean Platelet Volume 7.8 fL (7.0-11.0); Mono # (Auto) 0.3 th/mm3 (0.0-0.9); Mono % (Auto) 5.2 % (0.0-8.0); Neut # (Auto) 4.3 th/mm3 (1.8-7.7); Neut % (Auto) 75.6 % (16.0-70.0); Platelet Count 342 th/mm3 (150-450); Red Blood Count 3.44 mil/mm3 (4.00-5.30); Red Cell Distribution Width 17.7 % (11.6-17.2); White Blood Count 5.7 th/mm3 (4.0-11.0)
[2017-11-28 09:24] LABS: Albumin 2.2 g/dL (3.4-5.0); Anion Gap 6 meq/L (5-15); Aspartate Aminotransferase 8 U/L (15-37); Blood Urea Nitrogen 3 mg/dL (7-18); Carbon Dioxide 23.9 meq/L (21.0-32.0); Chloride 112 meq/L (98-107); Glomerular Filtration Rate Greater Than 89 mL/min (>89); Glucose,Random 77 mg/dL (74-106); Potassium 3.8 meq/L (3.5-5.1); Sodium 142 meq/L (136-145)
[2017-11-28 09:25] LABS: Alanine Aminotransferase 8 U/L (10-53)
[2017-11-28 09:27] LABS: Alkaline Phosphatase 46 U/L (45-117); Total Protein 6.6 g/dL (6.4-8.2)
--- NOTE | 2017-11-28 10:01 | P.PNFP ---
Subjective Interval history: Patient seen and examined bedside today. Patient states her hand pain and swelling has not improved at all from yesterday. She does not think the pain or swelling has improved since the day of admission, although the resident team did see improvement from day 0 today 1. She has throbbing hand pain from her fingers to her elbow. She is able to move her fingers but she still feels like it is very swollen. She feels warmth from her fingers through her forearm up to her elbow. She has a temperature of 100.6 while I am in the room, and otherwise has been afebrile since admission. No acute events overnight per nursing. No chest pain/shortness of breath/dizziness. No calf tenderness. Results - Labs Result diagrams: 11/28/17 08:31 11/28/17 08:31 Abnormal lab results 11/27/17 11/28/17 11/28/17 Range/Units 12:20 00:10 08:31 RBC 3.60 L 3.44 L (4.00-5.30) mil/mm3 Hgb 10.3 L 10.0 L (11.6-15.3) gm/dL Hct 31.6 L 30.8 L (35.0-46.0) % RDW 17.5 H 17.7 H (11.6-17.2) % Neut % (Auto) 75.6 H (16.0-70.0) % Chloride (98-107) meq/L BUN (7-18) mg/dL Calcium (8.5-10.1) mg/dL AST (15-37) U/L ALT (10-53) U/L Albumin (3.4-5.0) g/dL Vancomycin Trough 4.9 L (5.0-10.0) mcg/mL 11/28/17 Range/Units 08:31 RBC (4.00-5.30) mil/mm3 Hgb (11.6-15.3) gm/dL Hct (35.0-46.0) % RDW (11.6-17.2) % Neut % (Auto) (16.0-70.0) % Chloride 112 H (98-107) meq/L BUN 3 L (7-18) mg/dL Calcium 8.0 L (8.5-10.1) mg/dL AST 8 L (15-37) U/L ALT 8 L (10-53) U/L Albumin 2.2 L (3.4-5.0) g/dL Vancomycin Trough (5.0-10.0) mcg/mL Short CBC 11/27/17 11/28/17 Range/Units 12:20 08:31 WBC 5.9 5.7 (4.0-11.0) th/mm3 Hgb 10.3 L 10.0 L (11.6-15.3) gm/dL Hct 31.6 L 30.8 L (35.0-46.0) % Plt Count 326 342 (150-450) th/mm3 BMP 11/28/17 08:31 Sodium 142 Potassium 3.8 Chloride 112 H Carbon Dioxide 23.9 BUN 3 L Creatinine 0.61 Calcium 8.0 L Liver Function 11/28/17 Range/Units 08:31 Total Bilirubin 0.2 (0.2-1.0) mg/dL AST 8 L (15-37) U/L ALT 8 L (10-53) U/L Alkaline Phosphatase 46 (45-117) U/L Albumin 2.2 L (3.4-5.0) g/dL - Imaging Impressions Chest X-Ray 11/26/17 19:39 CONCLUSION: No acute cardiopulmonary process. Hand X-Ray 11/26/17 19:44 CONCLUSION: Soft tissue swelling. Physical Exam Vital signs: Vital Signs 11/27/17 11:27 11/27/17 13:58 11/27/17 17:41 Temperature 99.9 F H 98.5 F 99.8 F H Pulse Rate 90 87 86 Respiratory Rate 18 16 16 Blood Pressure 121/58 L 118/65 115/58 L Pulse Oximetry 98 98 98 11/27/17 20:00 11/28/17 00:00 11/28/17 04:00 Temperature 99.0 F 98.9 F 98.6 F Pulse Rate 85 80 81 Respiratory Rate 18 18 18 Blood Pressure 114/53 L 125/60 110/62 Pulse Oximetry 98 100 98 11/28/17 09:37 Temperature 100.6 F H Pulse Rate 90 Respiratory Rate 18 Blood Pressure 126/69 Pulse Oximetry 98 Intake & Output 11/27/17 11/28/17 11/28/17 18:59 06:59 18:59 Intake Total 1000 / 1000 2450 / 2450 Balance 1000 / 1000 2450 / 2450 Intake: IV 1000 / 1000 2450 / 2450 NS Inj 1,000 ML @ 100 mls/hr IV 1000 / 1000 1999 / 1999 .CONT .Q10H [facility] Rx#:[id number] Zosyn 4.5 GM Premix 4.5 gm In 200 / 200 100 ml @ 200 mls/hr IV.SIG Q6H [facility] Rx#:[id number] Vancomycin Inj 1,000 MG In NS 250 / 250 Inj 250 ML @ 250 mls/hr IV.SIG Q8H [facility] Rx#:[id number] Other: # Voids 2 Date of Last Bowel Movement 11/26/17 - Constitutional no acute distress - Routine Respiratory Exam Present: CTA bilaterally. Absent: accessory muscle use, decreased breath sounds , prolonged expiratory phase - Routine Cardiovascular Exam Present: RRR, S1, S2. Absent: murmur - Routine Abdominal Exam Present: soft, normoactive bowel sounds - Routine Extremities Exam Absent: cyanosis, clubbing, edema Comments: Multiple sites of skin wounds covering lower legs and feet, 0.5 cm with surrounding erythema, resembling MRSA versus folliculitis, leg wounds or not injection events per patient - Routine Skin Exam Present: lesions (Lesions on dorsal surface of hand where injection sites were, lesions over legs as mentioned above in extremity section) Assessment and Plan - Assessment (1) Cellulitis Code(s): L03.90 - Cellulitis, unspecified Status: Acute Plan: No improvement overnight, continue IV vancomycin and add Zosyn for coverage of gram negatives -Blood cultures 11/26 negative 1 day -Febrile this morning at 100.6, follow-up repeat blood cultures to be collected 11/28 -Follow-up echocardiogram to rule out endocarditis -We will consider addition of IV Solu-Medrol for symptoms On admission: 4x6 cm area of erythematous swelling of the R hand. Warm to the touch and tender to palpation. WC: 9.2 with neutrophil predominant 76.8 IV Vancomycin ordered. Blood Cultures sent. Tylenol for fevers PRN Ketorolac 30 mg IV q6 for pain. Monitor Vitals q4 (2) Acute anemia Code(s): D64.9 - Anemia, unspecified Status: Acute Plan: Resolved Hemoglobin of 13.7 on admission, dropped to 10.1 on 11/27, now stable No symptoms or evidence of GI bleed Ordered iron, vitamin C, will plan to discharge on these medications Follow-up CBC in 6 hours (3) Withdrawal from opioids Code(s): F11.23 - Opioid dependence with withdrawal Status: Acute Plan: Patient admits to using herion, cocaine and ij. Currently withdrawing, but stable. Urine Drug Screen Ordered Benadryl PRN for withdrawal symptoms [facility] protocol ordered (4) Intravenous drug abuse Code(s): F19.10 - Other psychoactive substance abuse, uncomplicated Status: Acute Plan: Patient admits to using heroin, ji and cocaine. States that she is currently withdrawing. Psych Drug Screen Ordered Case management consulted, patient needs her identification card to go to methadone clinic for rehab,no placement following this admission (5) Murmur, cardiac Code(s): R01.1 - Cardiac murmur, unspecified Status: Acute Plan: Systolic murmur appreciated over the L sternal border on admission by resident. Concerns for endocarditis considering IV drug use Follow-up original blood cultures and repeat blood cultures Echo ordered, follow-up results. (6) Nutrition, metabolism, and development symptoms Code(s): R63.8 - Other symptoms and signs concerning food and fluid intake Status: Acute Plan: Fluids: NS maintenance @ 100 mls/hr, p.o. fluids encourage Electrolyes: Monitor and Replete as needed Nutrition: Normal Diet - Assessment and Plan 27-year-old female, history of IV drug use, presents with right hand cellulitis and murmur on exam. Discharge Planning: Discharge pending resolution of symptoms, workup of cardiac murmur (1) Cellulitis Qualifiers: Site of cellulitis: extremity Site of cellulitis of extremity: upper extremity Laterality: right Qualified Code(s): L03.113 - Cellulitis of right upper limb
[2017-11-28] MEDS ORDERED: Gadobenate Dimeglumine PF Inj 10 ML VIAL (for RAD MRI) IVCONTRAST ONE (12:03)
[2017-11-28] MEDS ORDERED: MethylPREDNISolone Sod Succinate Inj 125 MG/2 ML Vial IV.PUSH ONE (12:30)
--- NOTE | 2017-11-28 12:30 | MR ---
EXAM DATE: 11/28/2017 12:21 PM EDT AGE/SEX: 27 years / Female INDICATIONS: Abscess. CLINICAL DATA: This is the patient's initial encounter. Patient reports that signs and symptoms have been present for 1 day and indicates a pain score of 4/10. MEDICAL/SURGICAL HISTORY: . IVDA section. COMPARISON: No prior exams available for comparison. TECHNIQUE: Multiplanar, multisequence MRI examination was performed without contrast and after the i ntravenous administration of 13 ml Multihance (gadobenate) contrast as a single exam dose. FINDINGS: There is subcutaneous edema adjacent to the patient's first carpometacarpal joint probably inflammato ry change without focal pocket of abscess. The marrow signal is unremarkable. The examination is limi karmen due to motion artifact. CONCLUSION: 1. Possibly inflammatory subcutaneous edema without focal abscess. Electronically signed by: Anna Castle MD 11/28/2017 12:29 PM EDT
--- NOTE | 2017-11-28 12:37 | MR ---
EXAM DATE: 11/28/2017 12:21 PM EDT AGE/SEX: 27 years / Female INDICATIONS: Abscess. CLINICAL DATA: This is the patient's initial encounter. Patient reports that signs and symptoms have been present for 1 day and indicates a pain score of 4/10. MEDICAL/SURGICAL HISTORY: . IVDA. section. COMPARISON: No prior exams available for comparison. TECHNIQUE: Multiplanar, multisequence MRI examination was performed without and with 13 ml Multihanc e (gadobenate) contrast as single exam dose. FINDINGS: There is subcutaneous edema in the patient's forearm dorsally in addition to volarly and medially ext ending to the level of the patient's wrist without focal abscess. The marrow signal appears intact. CONCLUSION: 1. Subcutaneous edema and inflammatory change without focal abscess. Electronically signed by: Anna Castle MD 11/28/2017 12:35 PM EDT
--- NOTE | 2017-11-28 18:39 | ECHRPT ---
Indication: Endocarditis CONCLUSIONS Normal left ventricular size and wall thickness. The left ventricular systolic function is normal wi th an estimated ejection fraction in the range of 60-65%. No regional wall motion abnormalities are prese nt. Technically excellent study. No evidence for endocarditis. Trivial mitral valve regurgitation. Trivial tricuspid valve regurgitation. BP: / HR: Rhythm: Sinus MEASUREMENTS (Male / Female) Normal Values Technical Quality:Fair 2D ECHO LV Diastolic Diameter PLAX 5.6 cm 4.2 - 5.9 / 3.9 - 5.3 cm LV Systolic Diameter PLAX 4.3 cm IVS Diastolic Thickness 0.8 cm 0.6 - 1.0 / 0.6 - 0.9 cm LVPW Diastolic Thickness 0.7 cm 0.6 - 1.0 / 0.6 - 0.9 cm LV Relative Wall Thickness 0.3 RV Internal Dim ED PLAX 3.5 cm LVOT Diameter 2.4 cm LA Systolic Diameter LX 4.1 cm 3.0 - 4.0 / 2.7 - 3.8 cm M-MODE Aortic Root Diameter MM 2.9 cm LA Systolic Diameter MM 4.4 cm LA Ao Ratio MM 1.5 AV Cusp Separation MM 2.3 cm DOPPLER AV Peak Velocity 152.0 cm/s AV Peak Gradient 9.2 mmHg LVOT Peak Velocity 108.0 cm/s LVOT Peak Gradient 4.7 mmHg AV Area Cont Eq pk 3.2 cm MV Area PHT 2.5 cm Mitral E Point Velocity 64.7 cm/s Mitral A Point Velocity 60.2 cm/s Mitral E to A Ratio 1.1 LV E' Lateral Velocity 14.2 cm/s Mitral E to LV E' Lateral Ratio 4.6 LV E' Septal Velocity 10.9 cm/s Mitral E to LV E' Septal Ratio 5.9 TR Peak Velocity 221.0 cm/s TR Peak Gradient 19.5 mmHg Right Atrial Pressure 10.0 mmHg Pulmonary Artery Systolic Pressu 29.5 mmHg Right Ventricular Systolic Press 29.5 mmHg FINDINGS LEFT VENTRICLE Normal left ventricular size and wall thickness. The left ventricular systolic function is normal wi th an estimated ejection fraction in the range of 60-65%. No regional wall motion abnormalities are prese nt. RIGHT VENTRICLE Normal right ventricular size and systolic function. LEFT ATRIUM The left atrial size is normal. RIGHT ATRIUM The right atrial size is normal. ATRIAL SEPTUM Normal atrial septal thickness without atrial level shunting by limited color doppler interrogation. AORTA The aortic root and proximal ascending aorta are normal in size on limited imaging. MITRAL VALVE Trivial mitral valve regurgitation. AORTIC VALVE Trileaflet aortic valve. No aortic valve stenosis or regurgitation. TRICUSPID VALVE Structurally normal tricuspid valve. There is trivial tricuspid valve regurgitation. PULMONARY VALVE Mild pulmonary valve regurgitation. VESSELS The inferior vena cava is normal in size. PERICARDIUM No pericardial effusion. Richard Oconnell MD (Electronically Signed) Final Date:28 November 2017 18:38
[2017-11-29] MEDS: Ketorolac 10 MG Tablet PO PRN ×3 (01:07→13:27)
[2017-11-29] MEDS: Sod Chloride 0.9% Inj 1,000 ML IV.CONT SCH ×3 (01:08→22:18)
[2017-11-29] MEDS: Vancomycin Inj 1,250 MG in Sodium Chlor 0.9% Inj 250 ML IV.SIG SCH ×3 (05:43→22:17)
[2017-11-29] MEDS ORDERED: Pharmacy Ordered Lab Info OTHER ONE (05:45)
[2017-11-29] MEDS: Piperacil/Tazo 4.5 GM Premix 4.5 GM/100 ML BAG IV.SIG SCH ×4 (06:14→22:19)
--- NOTE | 2017-11-29 08:59 | P.PNFP ---
Subjective Interval history: Patient was examined at bedside this morning. She complains of mild abdominal pain and nausea but otherwise has no other general complaints. She states that her right arm swelling has gotten better. She has increased range of motion of the right hand compared to yesterday. Overnight, IV access was lost, multiple attempts were done to regain access but was unsuccessful. Patient missed 1 dose of vancomycin and Zosyn but was switched to clindamycin p.o for coverage. IV access was regained this morning while at bedside. Today she denies any chest pain, shortness of breath, problems with urination or defecation. Case management is working with her for methadone clinic placement. <Gina Russ - 11/29/17 08:59> Results - Labs Result diagrams: 11/28/17 08:31 11/29/17 08:55 <Seth Smith - 11/29/17 21:22> Abnormal lab results 11/29/17 11/29/17 Range/Units 08:45 08:55 Chloride 111 H (98-107) meq/L BUN 6 L (7-18) mg/dL Calcium 8.4 L (8.5-10.1) mg/dL Total Bilirubin Less than 0.1 L (0.2-1.0) mg/dL AST 13 L (15-37) U/L C-Reactive Protein 2.50 H (0.00-0.30) mg/dL Albumin 2.4 L (3.4-5.0) g/dL Vancomycin Trough 2.7 L (5.0-10.0) mcg/mL BMP 11/29/17 08:55 Sodium 143 Potassium 3.8 Chloride 111 H Carbon Dioxide 24.1 BUN 6 L Creatinine 0.56 Calcium 8.4 L Liver Function 11/29/17 Range/Units 08:55 Total Bilirubin Less than 0.1 L (0.2-1.0) mg/dL AST 13 L (15-37) U/L ALT 10 (10-53) U/L Alkaline Phosphatase 47 (45-117) U/L Albumin 2.4 L (3.4-5.0) g/dL <Seth Smith - 11/29/17 21:22> Abnormal lab results 11/28/17 11/28/17 11/28/17 Range/Units 08:31 08:31 13:20 RBC 3.44 L (4.00-5.30) mil/mm3 Hgb 10.0 L (11.6-15.3) gm/dL Hct 30.8 L (35.0-46.0) % RDW 17.7 H (11.6-17.2) % Neut % (Auto) 75.6 H (16.0-70.0) % Chloride 112 H (98-107) meq/L BUN 3 L (7-18) mg/dL POC Glucose 111 H (68-110) mg/dl Calcium 8.0 L (8.5-10.1) mg/dL AST 8 L (15-37) U/L ALT 8 L (10-53) U/L Albumin 2.2 L (3.4-5.0) g/dL Short CBC 11/28/17 Range/Units 08:31 WBC 5.7 (4.0-11.0) th/mm3 Hgb 10.0 L (11.6-15.3) gm/dL Hct 30.8 L (35.0-46.0) % Plt Count 342 (150-450) th/mm3 BMP 11/28/17 08:31 Sodium 142 Potassium 3.8 Chloride 112 H Carbon Dioxide 23.9 BUN 3 L Creatinine 0.61 Calcium 8.0 L Liver Function 11/28/17 Range/Units 08:31 Total Bilirubin 0.2 (0.2-1.0) mg/dL AST 8 L (15-37) U/L ALT 8 L (10-53) U/L Alkaline Phosphatase 46 (45-117) U/L Albumin 2.2 L (3.4-5.0) g/dL <Gina Russ - 11/29/17 08:59> - Imaging Impressions Forearm MRI 11/28/17 00:00 CONCLUSION: 1. Subcutaneous edema and inflammatory change without focal abscess. Hand MRI 11/28/17 00:00 CONCLUSION: 1. Possibly inflammatory subcutaneous edema without focal abscess. <Gina Russ - 11/29/17 08:59> Physical Exam Vital signs: Vital Signs 11/29/17 00:00 11/29/17 04:00 11/29/17 10:01 Temperature 99.1 F 97.7 F 98.3 F Pulse Rate 88 68 64 Respiratory Rate 16 16 16 Blood Pressure 130/67 107/59 L 131/69 Pulse Oximetry 97 98 98 11/29/17 12:54 Temperature 98 F Pulse Rate 83 Respiratory Rate 16 Blood Pressure 115/68 Pulse Oximetry 99 Intake & Output 11/29/17 11/29/17 11/30/17 06:59 18:59 06:59 Intake Total 1720 / 1720 200 / 200 Balance 1720 / 1720 200 / 200 Weight 63.5 kg Intake: IV 1000 / 1000 200 / 200 NS Inj 1,000 ML @ 100 mls/hr IV 1000 / 1000 .CONT .Q10H [facility] Rx#:[id number] Zosyn 4.5 GM Premix 4.5 gm In 200 / 200 100 ml @ 200 mls/hr IV.SIG Q6H [facility] Rx#:[id number] Oral 720 / 720 Other: # Voids 1 1 Date of Last Bowel Movement 11/26/17 # Bowel Movements 1 <Seth Smith - 11/29/17 21:22> Vital Signs 11/28/17 09:37 11/28/17 20:00 11/29/17 00:00 Temperature 100.6 F H 97.9 F 99.1 F Pulse Rate 90 88 88 Respiratory Rate 18 18 16 Blood Pressure 126/69 114/61 130/67 Pulse Oximetry 98 98 97 11/29/17 04:00 Temperature 97.7 F Pulse Rate 68 Respiratory Rate 16 Blood Pressure 107/59 L Pulse Oximetry 98 Intake & Output 11/28/17 11/29/17 11/29/17 18:59 06:59 18:59 Intake Total 1462.5 / 1462.5 720 / 720 Balance 1462.5 / 1462.5 720 / 720 Weight 63.5 kg Intake: IV 1462.5 / 1462.5 NS Inj 1,000 ML @ 100 mls/hr IV 1000 / 1000 .CONT .Q10H [facility] Rx#:[id number] Zosyn 4.5 GM Premix 4.5 gm In 200 / 200 100 ml @ 200 mls/hr IV.SIG Q6H [facility] Rx#:[id number] Vancomycin Inj 1,250 MG In NS 262.5 / 262.5 Inj 250 ML @ 250 mls/hr IV.SIG Q8H [facility] Rx#:[id number] Oral 720 / 720 Other: # Voids 1 Date of Last Bowel Movement 11/26/17 # Bowel Movements 1 <Gina Russ - 11/29/17 08:59> Narrative: Well-appearing female, laying comfortably in bed, in no acute distress. <Gina Russ - 11/29/17 08:59> - Routine HEENT Exam Head: Present: normocephalic, atraumatic <Gina Russ 11/29/17 08:59> - Routine Respiratory Exam Present: CTA bilaterally <Gina Russ 11/29/17 08:59> - Routine Cardiovascular Exam Present: RRR, S1, S2 <Gina Russ 11/29/17 08:59> - Routine Skin Exam Comments: Multiple sites of skin wounds covering lower legs and feet, 0.5 cm with surrounding erythema resembling MRSA versus folliculitis, leg wound are not injections events per patient. 2 x 4 cm area of erythematous swelling of the right hand. Less tender to palpation today. Patient is able to move her fingers. Range of motion has increased. <Gina Russ - 11/29/17 08:59> Assessment and Plan - Assessment (1) Cellulitis Code(s): L03.90 - Cellulitis, unspecified Status: Acute (2) Acute anemia Code(s): D64.9 - Anemia, unspecified Status: Acute (3) Withdrawal from opioids Code(s): F11.23 - Opioid dependence with withdrawal Status: Acute (4) Intravenous drug abuse Code(s): F19.10 - Other psychoactive substance abuse, uncomplicated Status: Acute (5) Murmur, cardiac Code(s): R01.1 - Cardiac murmur, unspecified Status: Acute (6) Nutrition, metabolism, and development symptoms Code(s): R63.8 - Other symptoms and signs concerning food and fluid intake Status: Acute <Seth Smith - 11/29/17 21:22> (1) Cellulitis Code(s): L03.90 - Cellulitis, unspecified Status: Acute Plan: 11/29: Has improved from yesterday, area is less erythematous, increased range of motion. -IV access lost overnight and switch to clindamycin p.o. -IV access was regained this morning, D/C clindamycin restarted vancomycin and Zosyn IV. -Continue Solu-Medrol 40 mg p.o. Will taper to 30 mg p.o. tomorrow. -GI prophylaxis of Protonix and lactobacillus added. -Blood cultures 11/26 negative 2 day -Echocardiogram normal. Tylenol for fevers PRN Ketorolac 30 mg IV q6 for pain. Zofran as needed for nausea. Monitor Vitals q4 11/28 No improvement overnight, continue IV vancomycin and add Zosyn for coverage of gram negatives -Blood cultures 11/26 negative 1 day -Febrile this morning at 100.6, follow-up repeat blood cultures to be collected 11/28 -Follow-up echocardiogram to rule out endocarditis -We will consider addition of IV Solu-Medrol for symptoms On admission: 4x6 cm area of erythematous swelling of the R hand. Warm to the touch and tender to palpation. WC: 9.2 with neutrophil predominant 76.8 IV Vancomycin ordered. Blood Cultures sent. (2) Acute anemia Code(s): D64.9 - Anemia, unspecified Status: Acute Plan: 11/29: Phlebotomists is having a challenge with getting a good blood draw. CBC pending today. Will continue to monitor. Patient is currently asymptomatic. 11/28: Hemoglobin of 13.7 on admission, dropped to 10.1 on 11/27, now stable No symptoms or evidence of GI bleed Ordered iron, vitamin C, will plan to discharge on these medications Follow-up CBC in 6 hours (3) Withdrawal from opioids Code(s): F11.23 - Opioid dependence with withdrawal Status: Acute Plan: Patient admits to using herion, cocaine and ji. Currently withdrawing, but stable. Urine Drug Screen Ordered: Pending. Benadryl PRN for withdrawal symptoms [facility] protocol ordered (4) Intravenous drug abuse Code(s): F19.10 - Other psychoactive substance abuse, uncomplicated Status: Acute Plan: Patient admits to using heroin, ji and cocaine. States that she is currently withdrawing. Psych Drug Screen Ordered Case management consulted, patient needs her identification card to go to methadone clinic for rehab,no placement following this admission (5) Murmur, cardiac Code(s): R01.1 - Cardiac murmur, unspecified Status: Acute Plan: Systolic murmur appreciated over the L sternal border on admission by resident. Echo results normal. Follow-up original blood cultures and repeat blood cultures (6) Nutrition, metabolism, and development symptoms Code(s): R63.8 - Other symptoms and signs concerning food and fluid intake Status: Acute Plan: Fluids: NS maintenance @ 100 mls/hr, p.o. fluids encourage Electrolyes: Monitor and Replete as needed Nutrition: Normal Diet <Gina Russ - 11/29/17 09:47> - Assessment and Plan 27-year-old female, history of IV drug use, presents with right hand cellulitis and murmur on exam. <Gina Russ - 11/29/17 08:59> - Attending Attestation The exam, history, and the medical decision-making described in the above note were completed with the assistance of the resident physician. I reviewed and agree with the findings presented. I attest that I had a [id number] encounter with the patient on the same day, and personally performed and documented my assessment and findings in the medical record. <Seth Smith - 11/29/17 21:22> <Gina Russ - Last Filed: 11/29/17 09:47> (1) Cellulitis Qualifiers: Site of cellulitis: extremity Site of cellulitis of extremity: upper extremity Laterality: right Qualified Code(s): L03.113 - Cellulitis of right upper limb <Seth Smith - Last Filed: 11/29/17 21:22> (1) Cellulitis Qualifiers: Site of cellulitis: extremity Site of cellulitis of extremity: upper extremity Laterality: right Qualified Code(s): L03.113 - Cellulitis of right upper limb <Gina Russ - Last Filed: 11/29/17 09:47> (1) Cellulitis Qualifiers: Site of cellulitis: extremity Site of cellulitis of extremity: upper extremity Laterality: right Qualified Code(s): L03.113 - Cellulitis of right upper limb <Seth Smith - Last Filed: 11/29/17 21:22> (1) Cellulitis Qualifiers: Site of cellulitis: extremity Site of cellulitis of extremity: upper extremity Laterality: right Qualified Code(s): L03.113 - Cellulitis of right upper limb
[2017-11-29] MEDS ORDERED: MethylPREDNISolone Sod Succinate Inj 125 MG/2 ML Vial IV.PUSH SCH (09:00)
[2017-11-29 09:54] LABS: Alanine Aminotransferase 10 U/L (10-53)
[2017-11-29 09:56] LABS: Alkaline Phosphatase 47 U/L (45-117)
[2017-11-29 10:02] LABS: Albumin 2.4 g/dL (3.4-5.0); Anion Gap 8 meq/L (5-15); Aspartate Aminotransferase 13 U/L (15-37); Blood Urea Nitrogen 6 mg/dL (7-18); Calcium 8.4 mg/dL (8.5-10.1); Carbon Dioxide 24.1 meq/L (21.0-32.0); Chloride 111 meq/L (98-107); Glomerular Filtration Rate Greater Than 89 mL/min (>89); Glucose,Random 75 mg/dL (74-106); Potassium 3.8 meq/L (3.5-5.1); Sodium 143 meq/L (136-145)
[2017-11-29] MEDS: predniSONE 20 MG Tablet PO SCH ×2 (10:36→22:18)
[2017-11-29] MEDS: Ferrous Sulfate 325 MG Tablet PO SCH ×2 (10:37→22:18)
[2017-11-29] MEDS: LORazepam 1 MG Tablet PO PRN ×3 (10:37→23:52)
[2017-11-29] MEDS: Ascorbic Acid 500 MG Tablet PO SCH (10:51)
[2017-11-29] MEDS: Ketorolac Inj 30 MG/ML (IVP) Vial IV.PUSH SCH ×2 (16:01→22:18)
[2017-11-30] MEDS: Ketorolac Inj 30 MG/ML (IVP) Vial IV.PUSH SCH ×2 (04:06→11:12)
[2017-11-30] MEDS: Vancomycin Inj 1,250 MG in Sodium Chlor 0.9% Inj 250 ML IV.SIG SCH (04:07)
[2017-11-30] MEDS: Piperacil/Tazo 4.5 GM Premix 4.5 GM/100 ML BAG IV.SIG SCH ×2 (04:08→11:13)
[2017-11-30] MEDS: Sod Chloride 0.9% Inj 1,000 ML IV.CONT SCH ×3 (04:10→08:21)
[2017-11-30] MEDS: Ferrous Sulfate 325 MG Tablet PO SCH (08:21)
[2017-11-30] MEDS: Ascorbic Acid 500 MG Tablet PO SCH (08:21)
[2017-11-30] MEDS ORDERED: predniSONE 5 MG Tablet PO SCH (09:00)
--- NOTE | 2017-11-30 11:12 | P.PNFP ---
Subjective Interval history: Patient seen and examined bedside this morning. Patient states that her swelling has much improved. She still has pain on the dorsum of her hand, however she does not have pain down her forearm or elbow region any longer. She denies any fever/chills. Denies any chest pain/shortness of breath/ dizziness. No acute events overnight. Results - Labs Result diagrams: 11/28/17 08:31 11/29/17 08:55 Abnormal lab results 11/30/17 Range/Units 08:24 RBC 3.54 L (4.00-5.30) mil/mm3 Hgb 10.4 L (11.6-15.3) gm/dL Hct 31.6 L (35.0-46.0) % RDW 18.0 H (11.6-17.2) % [place] % (Auto) 8.3 H (0.0-8.0) % Short CBC 11/29/17 11/30/17 Range/Units 08:55 08:24 WBC Cancelled 4.8 Hgb Cancelled 10.4 L Hct Cancelled 31.6 L Plt Count Cancelled 284 Physical Exam Vital signs: Vital Signs 11/29/17 12:54 11/29/17 20:00 11/30/17 00:00 Temperature 98 F 98.6 F 98.2 F Pulse Rate 83 78 75 Respiratory Rate 16 18 18 Blood Pressure 115/68 119/60 125/64 Pulse Oximetry 99 96 98 11/30/17 04:00 11/30/17 08:00 Temperature 98.2 F 97.9 F Pulse Rate 73 59 L Respiratory Rate 18 20 Blood Pressure 122/73 122/84 Pulse Oximetry 97 100 Intake & Output 11/29/17 11/30/17 11/30/17 18:59 06:59 18:59 Intake Total 462.5 / 462.5 1782.5 / 1782.5 1000 / 1000 Balance 462.5 / 462.5 1782.5 / 1782.5 1000 / 1000 Intake: IV 462.5 / 462.5 1462.5 / 1462.5 1000 / 1000 NS Inj 1,000 ML @ 100 mls/hr IV 1000 / 1000 1000 / 1000 .CONT .Q10H [facility] Rx#:[id number] Zosyn 4.5 GM Premix 4.5 gm In 200 / 200 200 / 200 100 ml @ 200 mls/hr IV.SIG Q6H [facility] Rx#:[id number] Vancomycin Inj 1,250 MG In NS 262.5 / 262.5 262.5 / 262.5 Inj 250 ML @ 250 mls/hr IV.SIG Q8H [facility] Rx#:[id number] Oral 320 / 320 Other: # Voids 3 Date of Last Bowel Movement 11/26/17 - Constitutional no acute distress - Routine HEENT Exam Head: Present: normocephalic - Routine Respiratory Exam Present: CTA bilaterally. Absent: accessory muscle use, decreased breath sounds - Routine Cardiovascular Exam Present: RRR, S1, S2. Absent: murmur - Routine Abdominal Exam Present: soft, normoactive bowel sounds - Routine Extremities Exam Absent: edema Comments: Right hand swelling has improved 100% from baseline. Both hands look identical. Mild erythema of right hand is present. [employer] strength markedly improved. No tenderness to palpation along forearm. Mild tenderness to palpation on dorsum of hand. Assessment and Plan - Assessment (1) Cellulitis Code(s): L03.90 - Cellulitis, unspecified Status: Acute Plan: Swelling has 100% improved since admission, erythema has 75% improved since admission. Patient is happy with results and is ready to go home. - vancomycin and Zosyn IV. -Status post IV Solu-Medrol, plan to taper p.o. prednisone -GI prophylaxis of Protonix and lactobacillus added. -Blood cultures 11/26 negative 2 day -Echocardiogram normal. Tylenol for fevers PRN Ketorolac 30 mg IV q6 for pain. Zofran as needed for nausea. Monitor Vitals q4 On admission: 4x6 cm area of erythematous swelling of the R hand. Warm to the touch and tender to palpation. WC: 9.2 with neutrophil predominant 76.8 IV Vancomycin ordered. Blood Cultures sent. (2) Acute anemia Code(s): D64.9 - Anemia, unspecified Status: Acute Plan: CBC pending today. Will continue to monitor. Patient is currently asymptomatic. Hemoglobin of 13.7 on admission, dropped to 10.1 on 11/27, now stable No symptoms or evidence of GI bleed Ordered iron, vitamin C, will plan to discharge on these medications (3) Withdrawal from opioids Code(s): F11.23 - Opioid dependence with withdrawal Status: Acute Plan: Patient admits to using herion, cocaine and ji. Currently withdrawing, but stable. Urine Drug Screen Ordered: Pending. Benadryl PRN for withdrawal symptoms [facility] protocol ordered (4) Intravenous drug abuse Code(s): F19.10 - Other psychoactive substance abuse, uncomplicated Status: Acute Plan: Patient admits to using heroin, ji and cocaine. States that she is currently withdrawing. Psych Drug Screen Ordered Case management consulted, patient needs her identification card to go to methadone clinic for rehab,no placement following this admission (5) Murmur, cardiac Code(s): R01.1 - Cardiac murmur, unspecified Status: Acute Plan: Systolic murmur appreciated over the L sternal border on admission by resident. Echo results normal. Follow-up original blood cultures and repeat blood cultures (6) Nutrition, metabolism, and development symptoms Code(s): R63.8 - Other symptoms and signs concerning food and fluid intake Status: Acute Plan: Fluids: NS maintenance @ 100 mls/hr, p.o. fluids encourage Electrolyes: Monitor and Replete as needed Nutrition: Normal Diet - Assessment and Plan 27-year-old female, history of IV drug use, presents with right hand cellulitis and murmur on exam. Discharge Planning: Discharge today (1) Cellulitis Qualifiers: Site of cellulitis: extremity Site of cellulitis of extremity: upper extremity Laterality: right Qualified Code(s): L03.113 - Cellulitis of right upper limb
[2017-11-30] MEDS ORDERED: Pharmacy Ordered Lab Info OTHER ONE (11:45)
--- NOTE | 2017-12-23 10:01 | P.DS ---
Date of admission: 11/26/17 21:46 Primary care physician: No Primary Care Physician Brief History from admission: 27 year old female with history of IVDU presents with R hand swelling and pain shooting up her arm. The pain started 2 days ago and it was located on her right hand anteriorly. She describes the pain as a sharp pain. Holding her hand up in the air makes it feel better and the pain is worse when she tries to lay it down. The swelling seems to have increased up her arm in the past few days. She stated she was trying to shoot ji and cocaine up two days ago and she missed the vein so she believes she injected her skin and that's why it is infected. She has not taken any medication for the pain. She has also had associated fever, chills, nausea and vomiting over the past two days. This has never happened to her in the past PMH: Denies A: NKDA Meds: See Med Red FH: Denies SH: Currently homeless. Smokes cigarettes 1 ppd for 9 years. Denies any alcohol use. Does Heroin, Cocaine, and Ji (does not share needles, [facility] Sexually active with male. Uses protection (condom) with every encounter. DS: Diagnosis - Discharge Diagnosis (1) Cellulitis Status: Acute (2) Acute anemia Status: Acute (3) Withdrawal from opioids Status: Acute (4) Intravenous drug abuse Status: Acute (5) Murmur, cardiac Status: Acute (6) Nutrition, metabolism, and development symptoms Status: Acute DS: Summary Hospital Course: 27-year-old female history of IV drug use presented to the ED with right hand swelling and pain shooting up her left arm that started 2 days ago. She had shot cocaine of the right arm 2 days prior to admission. She had associated fever, chills, nausea and vomiting over the past 2 days. White count was 9.2 with neutrophil predominant of 76.8. Patient was tachycardic at 113 on admission but was afebrile at 99.9 and normal respiratory rate. Cardiac murmur was also appreciated on physical exam. Patient was started on IV vancomycin, IV Zosyn and given Solu-Medrol 40 mg p.o. Blood cultures were sent and were negative. Echocardiogram was negative. Patient also had acute anemia on second day of hospital course that seemed to resolve and was stable for the rest of the hospital course.Swelling had improved over the course of 4 days, erythema had improved by 75%. Patient left AGAINST MEDICAL ADVICE. - Time Spent with Patient Total time spent providing and/or coordinating discharge services: Less than 30 minutes Results Procedures completed during hospitalization: None. - Impressions ITS Impressions Chest X-Ray 11/26/17 19:39 CONCLUSION: No acute cardiopulmonary process. Hand X-Ray 11/26/17 19:44 CONCLUSION: Soft tissue swelling. Forearm MRI 11/28/17 00:00 CONCLUSION: 1. Subcutaneous edema and inflammatory change without focal abscess. Hand MRI 11/28/17 00:00 CONCLUSION: 1. Possibly inflammatory subcutaneous edema without focal abscess. Discharge Plan - Discharge Disposition Patient Disposition: Left Against Medical Advice - Discharge Condition Condition: Stable - Discharge Order Discharge Orders: AMA Discharge (Routine); Ordered 11/30/17 Ordered By: Digna Solorzano - Physicians Team Primary Care Provider: Primary Care Maty Bo Attending Provider: Seth Smith
== END 2017-11-30 12:39 | disposition left against medical advice (07) ==
LOC: NEPD 17:20 → NEDA 21:46 → N05 11-27 02:11
PROVIDERS: ADMIT Family Medicine; ATTEND Family Medicine
DX: D64.9 Anemia, unspecified; L03.113 Cellulitis of right upper limb; R01.1 Cardiac murmur, unspecified; F19.10 Other psychoactive substance abuse, uncomplicated; F17.210 Nicotine dependence, cigarettes, uncomplicated; F11.23 Opioid dependence with withdrawal